=== PATIENT | female | born 1965 | race Caucasian/White ===

== ENCOUNTER 2018-10-12 10:46 | Emergency (ER) | payer OTHER ==
[~2018-10-12] VITALS: Ht 154.9 cm; Wt 95.5 kg
[2018-10-12] MEDS ORDERED: IBUP-1506 PO (11:07)
[2018-10-12] MEDS ORDERED: LEVO125 PO (11:07)
[2018-10-12] MEDS ORDERED: AMLO-511 PO (11:07)
[2018-10-12] MEDS ORDERED: KETOROLAC TROMETHAMINE 60 MG/2 ML VIAL IM ONE (11:45)
[2018-10-12] MEDS ORDERED: METHOCARBAMOL 500 MG TABLET PO ONE (11:45)
[2018-10-12 12:18] VITALS: BP 139/84
== END 2018-10-12 12:28 | disposition home or self-care (01) ==
LOC: EMS 10:48
DX: M25.512 Pain in left shoulder (principal); I10 Essential (primary) hypertension; E03.9 Hypothyroidism, unspecified; Z91.013 Allergy to seafood; Z79.899 Other long term (current) drug therapy
CPT/HCPCS: 96372; 99283; J1885